=== PATIENT | female | born 1965 | race African-American/Black ===

== ENCOUNTER 2017-09-30 12:54 | Emergency (ER) | payer MEDICARE, MEDICAID ==
[~2017-09-30] VITALS: Ht 162.6 cm; Wt 91.0 kg
[2017-09-30] MEDS ORDERED: ACETAMINOPHEN WITH CODEINE 300/30MG TABLET PO ONE (15:00)
[2017-09-30 15:13] VITALS: BP 169/87
== END 2017-09-30 15:32 | disposition home or self-care (01) ==
LOC: ER 14:07
DX: S80.02XA Contusion of left knee, initial encounter (principal); W18.39XA Other fall on same level, initial encounter; Y93.89 Activity, other specified; Y92.89 Other specified places as the place of occurrence of the external cause; Y99.8 Other external cause status; Z98.890 Other specified postprocedural states; Z88.0 Allergy status to penicillin
CPT/HCPCS: 73562; 99284; L1830